=== PATIENT | female | born 1990 | race Caucasian/White ===

== ENCOUNTER 2017-09-12 15:32 | Emergency (ER) | payer BC ==
[~2017-09-12] VITALS: Ht 157.5 cm; Wt 93.0 kg
[2017-09-12 15:55] VITALS: BP 116/76
[2017-09-12] MEDS ORDERED: KETOROLAC TROMETH 60MG/2ML VIAL IM ONE ×2 (20:15→20:30)
[2017-09-12] MEDS ORDERED: BACLOFEN 10 MG TAB PO ONE ×2 (20:15→20:30)
== END 2017-09-12 19:45 | disposition home or self-care (01) ==
LOC: ER 15:32
DX: S29.012A Strain of muscle and tendon of back wall of thorax, initial encounter (principal); M79.1 Myalgia; X58.XXXA Exposure to other specified factors, initial encounter; Y93.89 Activity, other specified; Y92.89 Other specified places as the place of occurrence of the external cause; Y99.8 Other external cause status
CPT/HCPCS: 96372; 99283; J1885